=== PATIENT | female | born 1970 | race Two or more races ===

== ENCOUNTER 2016-09-02 12:07 | Emergency (ER) | payer OTHER ==
[2016-09-02] MEDS ORDERED: IBUPROFEN 600 MG TAB PO ONE (12:20)
[2016-09-02] MEDS ORDERED: ACETAMINOPHEN 500 MG TAB PO ONE (12:20)
--- NOTE | 2016-09-02 13:13 | EDPHY ---
H & P Time Seen by Provider: 09/02/16 12:20 HPI/ROS: CHIEF COMPLAINT: Sore throat, fever HISTORY OF PRESENT ILLNESS: 46-year-old female presents to the emergency department with sore throat and fever that began 3 days ago. She has had a mild cough. No nasal congestion or rhinorrhea. She denies dysphagia. She denies abdominal pain or vomiting. She has a mild headache. No rash. No known ill contacts. No recent travel. She did obtain a flu shot in the fall. REVIEW OF SYSTEMS: Constitutional: Fever as above Eyes: No double or blurry vision. ENT: sore throat. Respiratory: No cough, no shortness of breath. Cardiac: No chest pain. Gastrointestinal: No abdominal pain, vomiting or diarrhea. Genitourinary: No dysuria. Musculoskeletal: No neck or back pain. Skin: No rashes. Neurological: headache. Past Medical/Surgical History: Negative Social History: Smoking Status: Never smoked Physical Exam: General Appearance: Alert, no distress. Febrile temperature 37.4, heart rate 118, 151/98, 96% on room air. Nontoxic appearing. Eyes: Pupils equal and round. Extraocular motions are all intact. ENT: Mouth: Mucous membranes moist. Posterior pharyngeal injection noted. No exudate. No evidence of peritonsillar abscess. No muffled voice or trismus. Respiratory: No wheezing, rhonchi, or rales, lungs are clear to auscultation. Cardiovascular: Regular rate and rhythm. Tachycardic. Gastrointestinal: Abdomen is soft and nontender, no masses, no rebound or guarding, bowel sounds normal. Neurological: Alert and oriented x 3, cranial nerves II through XII grossly intact Skin: Warm and dry, no rashes. Musculoskeletal: Nontender to palpate along the cervical, thoracic or lumbar spine. Neck is supple. Extremities: Full range of motion and no peripheral edema. Psychiatric: Patient is oriented X 3, there is no agitation. Constitutional: Initial Vital Signs Temperature (C) 39.4 C H 09/02/16 12:08 Heart Rate 118 H 09/02/16 12:08 Respiratory Rate 20 09/02/16 12:08 Blood Pressure 151/98 H 09/02/16 12:08 O2 Sat (%) 96 09/02/16 12:08 O2 Delivery Mode Room Air Allergies/Adverse Reactions: No Known Allergies Allergy (Unverified 09/02/16 12:14) Home Medications: Medication Instructions Recorded Amoxicillin/Clavulanate Pot 875 mg PO BID #20 tab 09/02/16 [Augmentin 875 mg tab] Medical Decision Making ED Course/Re-evaluation: 46-year-old female presents with sore throat and fever. Her rapid strep test was negative. Influenza was negative. Patient was given 600 mg of ibuprofen p.o. and 1000 mg of Tylenol p.o.. She was drinking fluids without any problems. Repeat temperature was 37.6. She was feeling much better. She was no longer tachycardic. She feels comfortable being discharged home. Because the patient had fever and sore throat without other URI symptoms, the patient will be started on oral Augmentin. She was instructed to return if she developed recurring fever, difficulty swallowing, increasing pain, or if she felt worse in any way. She was comfortable with this plan. Differential Diagnosis: Including but not limited to strep pharyngitis, influenza, viral syndrome, peritonsillar abscess - Data Points Laboratory Results: 09/02/16 09/02/16 09/02/16 Unknown 12:25 12:25 Influenza Typ A,B (DFA) NEGATIVE FOR FLU (NEGATIVE) Group A Strep Screen NEGATIVE (NEGATIVE) Group A Strep DNA Pending Medications Given: Discontinued Medications Acetaminophen (Tylenol) 1,000 mg PO EDNOW ONE Stop: 09/02/16 12:21 Last Admin: 09/02/16 12:31 Dose: 1,000 mg Ibuprofen (Motrin) 600 mg PO EDNOW ONE Stop: 09/02/16 12:21 Last Admin: 09/02/16 12:30 Dose: 600 mg Departure - Departure Disposition: Home, Routine, Self-Care Clinical Impression: Acute pharyngitis Qualifiers: Pharyngitis/tonsillitis etiology: unspecified etiology Qualified Code(s): J02.9 - Acute pharyngitis, unspecified Fever Qualifiers: Fever type: unspecified Qualified Code(s): R50.9 - Fever, unspecified Condition: Good Instructions: Pharyngitis (ED), Fever in Adults (ED) Additional Instructions: Augmentin 875mg twice daily for 10 days. Adult Pain & Fever Control: We recommend Acetaminophen (Tylenol) and Ibuprofen (Motrin,Advil) for pain and fever control. When fever is high or pain severe, both drugs can be used at the same time, but at different intervals. Please note the time differences. Your dose is: Acetaminophen 1000mg every 4 to 6 hours Ibuprofen 600mg every 8 hours with food Note: do not take Acetaminophen with Hydrocodone (Vicodin, Lortab) or Oycodone (Percocet). These medications also contain Acetaminophen. No more than 3000mg of Acetaminophen should be taken in 24 hours (for an adult). Return if you developed a rash, difficulty swallowing, increasing pain, or if you feel worse in any way. Augmentin 875mg dos veces al osmani por 10 hartley. Control De Dolor y Fiebre: Les recomendamos Acetaminofina (Tylenol) y Ibuprofeno (Motrin, Advil) para dolor y control de la fiebre. Cuando la fiebre es treasure o el dolor es slick, ambas drogas puede ser usadas a la misma vez. Por favor tenga en cuenta la diferencia de horarios en el cual deben ser tomadas. Malave dosis es: Acetaminofina [1000]mg cada 4-6 horas Ibuprofeno [600]mg cada 8 horas con comida No tome Acetaminofina con Hydrocodone (Vicodin, Lortab) o Oxycodone (Percocet. Estas medicinas tambien contienen Acetaminofina. No mas de 4000mg de Acetaminofina deben ser tomados en 24 horas. Regrese si desarrolla sarpullido, dificultad al tragar, ms dolor, o si se siente peor de cualquier manera. Referrals: Stefania Doe MD [Primary Care Provider] - As per Instructions Prescriptions: Amoxicillin/Clavulanate Pot [Augmentin 875 mg tab] 875 mg PO BID #20 tab Print Language: Urdu
[2016-09-02 14:00] VITALS: RESP 16
[2016-09-02 14:52] VITALS: TEMP 99.1; O2SAT 98
[2016-09-02 14:55] VITALS: BP 118/70; PULSE 91
== END 2016-09-02 14:52 | disposition home or self-care (01) ==
DX: J02.9 Acute pharyngitis, unspecified (principal); R50.9 Fever, unspecified